=== PATIENT | female | born 1960 | race Caucasian/White ===

== ENCOUNTER 2017-06-29 17:26 | Emergency (ER) | payer BC ==
[2017-06-29] MEDS: KETOROLAC 30 MG INJ IM (19:30)
== END 2017-06-29 20:56 | disposition home or self-care (01) ==
LOC: FTE 17:26
DX: M25.561 Pain in right knee (principal)
CPT/HCPCS: 73562; 96372; 99284-25

== ENCOUNTER 2017-11-29 19:30 | Emergency (ER) | payer BC ==
[2017-11-29] MEDS: HYDROCODONE/APAP (10/325) TAB PO (20:52)
[2017-11-29] MEDS: DIPHTH/TET/ACEL PERTUSS (ADULT) 0.5 ML VIAL IM* (20:53)
[2017-11-29] MEDS: LIDOCAINE 1% (MDV) 20 ML INJ SC (20:53)
== END 2017-11-29 21:34 | disposition home or self-care (01) ==
LOC: FTE 19:30
DX: S61.210A Laceration without foreign body of right index finger without damage to nail, initial encounter (principal); I10 Essential (primary) hypertension; W26.8XXA Contact with other sharp object(s), not elsewhere classified, initial encounter; Y92.9 Unspecified place or not applicable; Z23 Encounter for immunization
CPT/HCPCS: 12001; 73130-RT; 90471; 90715; 99283-25

== ENCOUNTER 2017-12-06 19:05 | Emergency (ER) | payer BC | END 2017-12-06 22:04 | disposition home or self-care (01) | LOC: FTE 19:05 | DX: Z48.02 Encounter for removal of sutures (principal); I10 Essential (primary) hypertension | CPT/HCPCS: 99281 ==